=== PATIENT | female | born 1975 | race Caucasian/White ===

== ENCOUNTER 2018-01-21 03:34 | Emergency (ER) | payer OTHER | END 2018-01-21 04:45 | disposition home or self-care (01) | LOC: FTE 03:34 | DX: S00.03XA Contusion of scalp, initial encounter (principal); F17.210 Nicotine dependence, cigarettes, uncomplicated; W22.8XXA Striking against or struck by other objects, initial encounter; Y92.9 Unspecified place or not applicable | CPT/HCPCS: 99283; Z7502 ==

== ENCOUNTER 2018-07-28 10:54 | Emergency (ER) | payer OTHER | END 2018-07-28 11:46 | disposition home or self-care (01) | LOC: FTE 10:54 | DX: M79.601 Pain in right arm (principal); R20.2 Paresthesia of skin; Z87.891 Personal history of nicotine dependence | CPT/HCPCS: 29125; 99283-25 ==

== ENCOUNTER 2018-10-03 23:11 | Emergency (ER) | payer SELFPAY, OTHER | END 2018-10-03 23:46 | disposition left against medical advice (07) | LOC: E/R 23:11 | DX: Z53.21 Procedure and treatment not carried out due to patient leaving prior to being seen by health care provider (principal) ==